=== PATIENT | female | born 1980 | race Caucasian/White ===

== ENCOUNTER 2016-09-07 15:39 | Emergency (ER) | payer OTHER ==
[~2016-09-07] VITALS: Ht 162.6 cm; Wt 93.0 kg
[2016-09-07 15:39] VITALS: BP 120/87
[~2016-09-07 15:39] MED LIST: HYDR-971 PO
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
[2016-09-07] MEDS ORDERED: OXYCODONE/APAP 5/325 TABLET. ONE (16:43)
[2016-09-07] MEDS ORDERED: OXYCODONE/APAP 5/325 TABLET. PO ONE ×2 (16:45→17:15)
== END 2016-09-07 16:20 | disposition home or self-care (01) ==
LOC: ER 15:39
DX: S49.91XA Unspecified injury of right shoulder and upper arm, initial encounter (principal); F41.9 Anxiety disorder, unspecified; Z88.0 Allergy status to penicillin; Z88.2 Allergy status to sulfonamides; Z88.8 Allergy status to other drugs, medicaments and biological substances; X58.XXXA Exposure to other specified factors, initial encounter; Y93.89 Activity, other specified; Y92.89 Other specified places as the place of occurrence of the external cause; Y99.8 Other external cause status
CPT/HCPCS: 99283

== ENCOUNTER 2017-02-04 13:50 | Emergency (ER) | payer OTHER ==
[~2017-02-04] VITALS: Ht 162.6 cm; Wt 97.1 kg
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
[2017-02-04 15:43] LABS: CLARITY,URINE CLOUDY; COLOR,URINE YELLOW; GLUCOSE,URINE NEG (NEG)
[2017-02-04 15:44] LABS: BILIRUBIN,URINE NEG (NEG)
[2017-02-04 15:45] LABS: BACTERIA,URINE FEW /HPF (0-FEW); NITRITE,URINE NEG (NEG); SQUAMOUS EPITHELIAL CELL,UR MANY /LPF; UROBILINOGEN,URINE 0.2 mg/dL (0.2 mg/dL)
[2017-02-04] MEDS ORDERED: CYCL-331 PO (16:41)
[2017-02-04] MEDS ORDERED: CYCLOBENZAPRINE 10 MG TABLET. PO ONE (17:00)
[2017-02-04 17:57] VITALS: BP 126/68
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
== END 2017-02-04 17:52 | disposition home or self-care (01) ==
LOC: EEVIPCON 13:50 → ER 13:50
DX: S09.8XXA Other specified injuries of head, initial encounter (principal); S60.222A Contusion of left hand, initial encounter; S60.221A Contusion of right hand, initial encounter; S00.511A Abrasion of lip, initial encounter; M79.1 Myalgia; F31.9 Bipolar disorder, unspecified; F41.9 Anxiety disorder, unspecified; Z88.0 Allergy status to penicillin; Z88.2 Allergy status to sulfonamides; Z88.8 Allergy status to other drugs, medicaments and biological substances; Y04.0XXA Assault by unarmed brawl or fight, initial encounter; Y93.89 Activity, other specified; Y99.8 Other external cause status; Y92.89 Other specified places as the place of occurrence of the external cause
CPT/HCPCS: 70450; 72072; 72125; 81001; 81025; 99285-25

== ENCOUNTER 2017-06-18 16:24 | Emergency (ER) | payer OTHER ==
[~2017-06-18 16:24] MED LIST changes: +CYCL-331 PO
[2017-06-18 16:30] VITALS: BP 148/81
[2017-06-18] MEDS ORDERED: CEPH-264 PO (17:43)
[2017-06-18] MEDS ORDERED: percogesic PO (17:43)
--- NOTE | 2017-06-18 17:44 | PHYS DOC ---
Past History Past Medical History: Anxiety, Bipolar, Other Past Surgical History: , Other Alcohol Use: None Drug Use: None Adult General Chief Complaint Chief Complaint: WOUND CHECK HPI HPI 36-year-old female patient with history of anxiety and bipolar disorder states she had a large lipoma removal from her back about 1 month ago without any problem. Patient states for the last 2 weeks she has had discomfort feeling in the area of surgery that getting worse for the last 2 days without fever, nausea and vomiting, pus drainage from wound. Patient states she took over-the- counter Tylenol and ibuprofen without improvement of her pain. Review of Systems Review of Systems Constitutional: Denies fever or chills [] Eyes: Denies change in visual acuity, redness, or eye pain [] HENT: Denies nasal congestion or sore throat [] Respiratory: Denies cough or shortness of breath [] Cardiovascular: No additional information not addressed in HPI [] GI: Denies abdominal pain, nausea, vomiting, bloody stools or diarrhea [] : Denies dysuria or hematuria [] Musculoskeletal: Denies joint pain, reports back pain] Integument: Denies rash or skin lesions [] Neurologic: Denies headache, focal weakness or sensory changes [] Endocrine: Denies polyuria or polydipsia [] All other systems were reviewed and found to be within normal limits, except as documented in this note. Allergies Allergies Allergies Coded Allergies Type Severity Reaction Last Updated Verified Penicillins Allergy Intermediate rash 09/07/16 Yes Sulfa (Sulfonamide Antibiotics) Allergy Intermediate rash 09/07/16 Yes prednisone Allergy Intermediate skin turns purple 07/03/16 Yes Physical Exam Physical Exam Constitutional: Well nourished, mild distress, non-toxic appearance, anxious. [ ] HENT: Normocephalic, atraumatic, bilateral external ears normal, oropharynx moist, no oral exudates, nose normal. [] Eyes: PERRLA, EOMI, conjunctiva normal, no discharge. [] Neck: Normal range of motion, no tenderness, supple, no stridor. [] Cardiovascular:Heart rate regular rhythm, no murmur [] Lungs & Thorax: Bilateral breath sounds clear to auscultation [] Skin: Warm, dry, no erythema, no rash. [] Back: Voluntary guarding in touching of area of surgery in midline of upper back , clean surgical wound without edema or fluctuation, mild erythema no CVA tenderness. [] Extremities: No tenderness, no cyanosis, no clubbing, ROM intact, no edema. [] Neurologic: Alert and oriented X 3, normal motor function, normal sensory function, no focal deficits noted. [] Psychologic: Anxious EKG EKG [] Radiology/Procedures Radiology/Procedures [] Dragon Disclaimer Dragon Disclaimer This electronic medical record was generated, in whole or in part, using a voice recognition dictation system. Departure Departure: Impression: Primary Impression: Visit for wound check Additional Impression: Anxiety Disposition: HOME, SELF-CARE Condition: STABLE Referrals: SHANNAN JOYNER (PCP) Patient Instructions: Wound Care, [id number] Additional Instructions: Follow-up with your physician in 3-5 days Return to ER if not getting better Scripts [percogesic] No Conflict Check 1 TAB PO TID Y for PAIN, #14 Prov: CRISTINA BAY MD 06/18/17 Cephalexin (KEFLEX) 500 Mg Capsule 1 CAP PO TID, #21 CAP Prov: CRISTINA BAY MD 06/18/17 Problem Qualifiers CRISTINA BAY MD Jun 18, 2017 17:44
== END 2017-06-18 17:48 | disposition home or self-care (01) ==
LOC: ER 16:24
DX: F41.9 Anxiety disorder, unspecified (principal); F31.9 Bipolar disorder, unspecified; Z48.01 Encounter for change or removal of surgical wound dressing; Z98.890 Other specified postprocedural states; Z88.0 Allergy status to penicillin; Z88.2 Allergy status to sulfonamides; Z88.8 Allergy status to other drugs, medicaments and biological substances
CPT/HCPCS: 99283

== ENCOUNTER 2017-08-01 17:24 | Emergency (ER) | payer OTHER ==
[~2017-08-01 17:24] MED LIST changes: +CEPH-264 PO; +percogesic PO
[2017-08-01 17:30] VITALS: BP 111/71
--- NOTE | 2017-08-01 18:17 | PHYS DOC ---
Past History Past Medical History: Anxiety, Bipolar, Other Additional Past Medical Histor: PTSD Past Surgical History: Smoking: Cigarettes, Greater than 1 pack/day Alcohol Use: None Drug Use: None Adult General Chief Complaint Chief Complaint: COUGH HPI HPI Patient is a pleasant 36 showed female with a known history of anxiety, bipolar disorder and PTSD who is on medications for these elements of presents with cough for last 2 days that is productive in nature without shortness of breath, mild sore throat with cough, no change in voice, with mild nasal congestion without ear pain ear drainage fevers chills or other symptoms. Patient also noted that she has 2 small lesions on the dorsum of the right hand started out as a area small swelling that she attempted to open express for similar purulent discharge now the redness and swelling as got progressively worse. Although she is No other systemic symptoms of joint swelling, rash on her palms and soles, night sweats weight loss or recent antibiotics use. Patient denies IV drug use, denies any sick contacts. She does not work as she is applying for a "" disability. Review of Systems Review of Systems Constitutional: Subjective fevers and chills Eyes: Denies change in visual acuity, redness, or eye pain [] HENT: Positive for nasal congestion positive for sore throat with cough Respiratory: Positive for productive cough without shortness of breath Cardiovascular: No additional information not addressed in HPI [] GI: Denies abdominal pain, nausea, vomiting, bloody stools or diarrhea [] : Denies dysuria or hematuria [] Musculoskeletal: Denies back pain or joint pain [] Integument: Denies rash or positive for skin lesions over the dorsum of the right hand Neurologic: Denies headache, focal weakness or sensory changes [] Endocrine: Denies polyuria or polydipsia [] All other systems were reviewed and found to be within normal limits, except as documented in this note. Allergies Allergies Allergies Coded Allergies Type Severity Reaction Last Updated Verified Penicillins Allergy Intermediate rash 09/07/16 Yes Sulfa (Sulfonamide Antibiotics) Allergy Intermediate rash 09/07/16 Yes prednisone Allergy Intermediate skin turns purple 07/03/16 Yes Physical Exam Physical Exam Of the vital signs noted on the chart within normal limits. Constitutional: Well developed, well nourished, no acute distress, non-toxic appearance. [] HENT: Normocephalic, atraumatic, bilateral external ears normal, oropharynx moist mild erythema no tonsillar hypertrophy, no oral exudates, nose normal. [] Eyes: PERRLA, EOMI, conjunctiva normal, no discharge. [] Neck: Normal range of motion, no tenderness, supple, no stridor. No anterior lymphadenopathy [] Cardiovascular:Heart rate regular rhythm, no murmur [] Lungs & Thorax: Bilateral breath sounds clear to auscultation no wheezes rhonchi rales or crackles[] Skin: Warm, dry, she has 2 small lesions measuring less than 1.5 cm on the dorsum of the right hand. One has an area of erythema that measures about 2 cm in width with a small area. Discharge with indurated tissues. There is no abscess to drain.[] Extremities: No tenderness, no cyanosis, no clubbing, ROM intact, no edema. [] Neurologic: Alert and oriented X 3, normal motor function, normal sensory function, no focal deficits noted. [] Psychologic: Affect normal, judgement normal, mood normal. [] EKG EKG [] Radiology/Procedures Radiology/Procedures [] Course & Med Decision Making Course & Med Decision Making Pertinent Labs and Imaging studies reviewed. (See chart for details) []Patient presents with a cough and symptoms very consistent with a URI. She is a smoker and she has these 2 small cellulitic lesions on the dorsum of the hand I will start her on doxycycline to treat both. I will encourage her to quit smoking. Also influenza swab a and B is negative. Patient was given supportive medications asked to follow up with her PCP. discharge: I've spoken with the patient and/or caregivers. I've explained the patient's condition, diagnosis and treatment plan based on information available to me at this time. I've answered the patient's and/or caregivers questions and addressed any concerns. The patient and/or caregivers have a good understanding the patient's diagnosis, condition and treatment plan as can be expected at this point. Vital signs have been stabilized. The patient's condition is stable for discharge from the emergency department. The patient will pursue further outpatient evaluation with her primary care provider or other designated consulting physician as outlined in the discharge instructions. Patient and/or caregivers are agreeable to this plan of care and follow-up instructions have been explained in detail. The patient and/or caregivers have received these instructions in written format and expressed understanding of these discharge instructions. The patient and her caregivers are aware that if any significant change in condition or worsening of symptoms should prompt him to immediately return to this of the closest emergency department. If an emergent department is not readily available I would encourage him to call 911. Lizzy Disclaimer Lizzy Disclaimer This electronic medical record was generated, in whole or in part, using a voice recognition dictation system. Departure Departure: Impression: Primary Impression: Cellulitis Additional Impression: Upper respiratory tract infection Disposition: HOME, SELF-CARE Condition: IMPROVED Referrals: SHANNAN JOYNER (PCP) Patient Instructions: Cellulitis, Upper Respiratory Infection, Adult Additional Instructions: discharge: I've spoken with the patient and/or caregivers. I've explained the patient's condition, diagnosis and treatment plan based on information available to me at this time. I've answered the patient's and/or caregivers questions and addressed any concerns. The patient and/or caregivers have a good understanding the patient's diagnosis, condition and treatment plan as can be expected at this point. Vital signs have been stabilized. The patient's condition is stable for discharge from the emergency department. The patient will pursue further outpatient evaluation with her primary care provider or other designated consulting physician as outlined in the discharge instructions. Patient and/or caregivers are agreeable to this plan of care and follow-up instructions have been explained in detail. The patient and/or caregivers have received these instructions in written format and expressed understanding of these discharge instructions. The patient and her caregivers are aware that if any significant change in condition or worsening of symptoms should prompt him to immediately return to this of the closest emergency department. If an emergent department is not readily available I would encourage him to call 911. Scripts Naproxen Sodium (NAPROXEN SODIUM) 275 Mg Tablet 275 MG PO BID for 7 Days, #14 TAB Prov: MAMIE DESAI MD 08/01/17 Guaifenesin/Dextromethorphan (MUCINEX DM ER 1,200-60 MG TAB) 1 Each Tbmp.12hr 1 TAB PO BID, #20 TAB 1 Refill Prov: MAMIE DESAI MD 08/01/17 Doxycycline Monohydrate (DOXYCYCLINE MONOHYDRATE) 100 Mg Capsule 1 CAP PO BID, #20 CAP Prov: MAMIE DESAI MD 08/01/17 Problem Qualifiers MAMIE DESAI MD Aug 01, 2017 18:17
[2017-08-01 18:21] LABS: INFLUENZA A PATIENT NEGATIVE (NEGATIVE); INFLUENZA B PATIENT NEGATIVE (NEGATIVE)
[2017-08-01] MEDS ORDERED: GUAI1TBM10 PO (18:30)
[2017-08-01] MEDS ORDERED: NAPR275T59 PO (18:30)
[2017-08-01] MEDS ORDERED: DOXY100C14 PO (18:30)
== END 2017-08-01 18:34 | disposition home or self-care (01) ==
LOC: ER 17:24
DX: J06.9 Acute upper respiratory infection, unspecified (principal); L03.113 Cellulitis of right upper limb; F31.9 Bipolar disorder, unspecified; F43.10 Post-traumatic stress disorder, unspecified; F41.9 Anxiety disorder, unspecified; F17.210 Nicotine dependence, cigarettes, uncomplicated; Z88.0 Allergy status to penicillin; Z88.2 Allergy status to sulfonamides; Z88.8 Allergy status to other drugs, medicaments and biological substances
CPT/HCPCS: 87804; 99284

== ENCOUNTER 2017-10-28 18:34 | Emergency (ER) | payer OTHER ==
[~2017-10-28] VITALS: Ht 165.1 cm; Wt 102.7 kg
[~2017-10-28 18:34] MED LIST changes: +DOXY100C14 PO; +GUAI1TBM10 PO; +NAPR275T59 PO
--- NOTE | 2017-10-28 18:38 | ED.ADGEN ---
Past History Past Medical History: Anxiety, Bipolar, UTI, Other Additional Past Medical Histor: PTSD Past Surgical History: Smoking: Cigarettes, Greater than 1 pack/day Alcohol Use: None Drug Use: None Adult General Chief Complaint Chief Complaint ".. I ve got flank pain .. both sides... and I ve been dizzy today...some nausea..." HPI HPI Patient is a 36 year old female who presents with above hx and complaints bilateral flank pain and nausea. Pt. Complaints of Dysuria. No history of vaginal discharge or concerns. Does have pains on percussion of bilateral flanks. No history of kidney stones. Patient has poor intake for the last 24 hours because of nausea. No history of travel or ill contacts. No history immunosuppression. No history of bad food. Review of Systems Review of Systems Constitutional: Subjective history of fever or chills [] Eyes: Denies change in visual acuity, redness, or eye pain [] HENT: Denies nasal congestion or sore throat [] Respiratory: Denies cough or shortness of breath [] Cardiovascular: No additional information not addressed in HPI [] GI: BiLateral flank abdominal pain, nausea. vomiting, bloody stools or diarrhea [] : Hx. of dysuria and hematuria [] Musculoskeletal: Denies back pain or joint pain [] Integument: Denies rash or skin lesions [] Neurologic: Denies headache, focal weakness or sensory changes [] Endocrine: Denies polyuria or polydipsia [] All other systems were reviewed and found to be within normal limits, except as documented in this note. Family History Family History Non-contributory Current Medications Current Medications Current Medications Medications (Trade) Dose Ordered Sig/Maddie Start Time Stop Time Status Last Admin Dose Admin Ceftriaxone Sodium 1 gm/ Sodium Chloride 50 ml @ 100 mls/hr 1X ONCE 10/28/17 19:30 10/28/17 19:59 UNV Ceftriaxone Sodium (Rocephin) 1 gm 1X ONCE 10/28/17 19:45 10/28/17 19:46 DC 10/28/17 20:22 1 GM Ketorolac Tromethamine (Toradol) 30 mg 1X ONCE 10/28/17 19:30 10/28/17 19:36 DC 10/28/17 19:32 30 MG Lactated Ringer's 1,000 ml @ 1,000 mls/hr 1X ONCE 10/28/17 19:30 10/28/17 20:29 DC 10/28/17 19:31 1,000 MLS/HR Levofloxacin (Levaquin) 500 mg 1X ONCE 10/28/17 20:30 10/28/17 20:31 DC 10/28/17 20:55 500 MG Morphine Sulfate (Morphine 10mg Syringe) 10 mg 1X ONCE 10/28/17 21:00 10/28/17 21:02 DC 10/28/17 21:01 10 MG Ondansetron HCl (Zofran Odt) 8 mg 1X ONCE 10/28/17 19:30 10/28/17 19:36 DC 10/28/17 19:32 8 MG Allergies Allergies Allergies Coded Allergies Type Severity Reaction Last Updated Verified Penicillins Allergy Intermediate rash 10/28/17 Yes Sulfa (Sulfonamide Antibiotics) Allergy Intermediate rash 10/28/17 Yes prednisone Allergy Intermediate skin turns purple 10/28/17 Yes Physical Exam Physical Exam Constitutional: Moderately acute distress, non-toxic appearance. [] HENT: Normocephalic, atraumatic, bilateral external ears normal, oropharynx dry , no oral exudates, nose normal. [] Eyes: PERRLA, EOMI, conjunctiva normal, no discharge. [] Neck: Normal range of motion, no tenderness, supple, no stridor. [] Cardiovascular: Tachycardia Heart rate regular rhythm, no murmur [] Lungs & Thorax: Bilateral breath sounds equal at apex with scattered wheezes auscultation [] Abdomen: Bowel sounds normal, soft, , no masses, no pulsatile masses. Old scar. Bilateral flank tenderness on percussion Suprapubic tenderness. Patient declines rectal vaginal exam at this time Skin: Warm, dry, no erythema, no rash. [] Back: No tenderness, bilateral CVA tenderness. [] Extremities: No tenderness, no cyanosis, no clubbing, ROM intact, no edema. [] Neurologic: Alert and oriented X 3, normal motor function, normal sensory function, no focal deficits noted. [] Psychologic: Affect anxious judgement normal, mood normal. [] Current Patient Data Vital Signs Vital Signs Date Time Temp Pulse Resp B/P (MAP) Pulse Ox O2 Delivery O2 Flow Rate FiO2 10/28/17 21:35 82 20 135/76 (95) 100 Room Air 10/28/17 18:45 98.2 Lab Results Laboratory Tests Test 10/28/17 19:03 10/28/17 19:50 Urine Collection Type Unknown Urine Color [place] Urine Clarity Cloudy Urine pH 5.5 Urine Specific [place] >=1.030 Urine Protein >100 mg/dl (NEG-TRACE) Urine Glucose (UA) Neg mg/dL (NEG) Urine Ketones (Stick) Trace mg/dL (NEG) Urine Blood Large (NEG) Urine Nitrite Pos (NEG) Urine Bilirubin Neg (NEG) Urine Urobilinogen Dipstick 1 mg/dL (0.2 mg/dL) Urine Leukocyte Esterase Neg (NEG) Urine RBC >40 /HPF (0-2) Urine WBC 5-10 /HPF (0-4) Urine Squamous Epithelial Cells Mod /LPF Urine Bacteria Few /HPF (0-FEW) Urine Mucus Slight /LPF White Blood Count 9.0 x10^3/uL (4.0-11.0) Red Blood Count 4.75 x10^6/uL (3.50-5.40) Hemoglobin 13.3 g/dL (12.0-15.5) Hematocrit 39.7 % (36.0-47.0) Mean Corpuscular Volume 84 fL (79-100) Mean Corpuscular Hemoglobin 28 pg (25-35) Mean Corpuscular Hemoglobin Concent 34 g/dL (31-37) Red Cell Distribution Width 14.6 % (11.5-14.5) H Platelet Count 271 x10^3/uL (140-400) Neutrophils (%) (Auto) 54 % (31-73) Lymphocytes (%) (Auto) 35 % (24-48) Monocytes (%) (Auto) 7 % (0-9) Eosinophils (%) (Auto) 3 % (0-3) Basophils (%) (Auto) 1 % (0-3) Neutrophils # (Auto) 4.8 x10^3uL (1.8-7.7) Lymphocytes # (Auto) 3.2 x10^3/uL (1.0-4.8) Monocytes # (Auto) 0.6 x10^3/uL (0.0-1.1) Eosinophils # (Auto) 0.3 x10^3/uL (0.0-0.7) Basophils # (Auto) 0.1 x10^3/uL (0.0-0.2) Sodium Level 144 mmol/L (136-145) Potassium Level 3.9 mmol/L (3.5-5.1) Chloride Level 107 mmol/L (98-107) Carbon Dioxide Level 29 mmol/L (21-32) Anion Gap 8 (6-14) Blood Urea Nitrogen 12 mg/dL (7-20) Creatinine 1.0 mg/dL (0.6-1.0) Estimated GFR (Cockcroft-Gault) 62.7 Glucose Level 67 mg/dL (70-99) L Calcium Level 9.0 mg/dL (8.5-10.1) Total Bilirubin 0.3 mg/dL (0.2-1.0) Direct Bilirubin 0.1 mg/dL (0.0-0.2) Aspartate Amino Transferase (AST) 11 U/L (15-37) L Alanine Aminotransferase (ALT) 16 U/L (14-59) Alkaline Phosphatase 46 U/L (46-116) Total Protein 7.8 g/dL (6.4-8.2) Albumin 3.9 g/dL (3.4-5.0) EKG EKG EKG shows a sinus rhythm at 80 bpm. No acute morphology[] Radiology/Procedures Radiology/Procedures Interpretation acute abdomen shows no acute cardiopulmonary findings. No free air in the diaphragm. Nonspecific bowel gas pattern.[] Course & Med Decision Making Course & Med Decision Making Pertinent Labs and Imaging studies reviewed. (See chart for details). Push Vit. C drinks. Levaquin 500 daily x 5 days. Must follow up cultures. Push fluids. Tylenol and ibuprofen for pain. Return if any concerns. Must follow- up primary care. Review labs and cultures pending here. [] Final Impression Final Impression 1. Dehydration 2. Urinary tract infection[] 3. Hypoglycemia Dragon Disclaimer Dragon Disclaimer This electronic medical record was generated, in whole or in part, using a voice recognition dictation system. JUAN ALBERTO FARIAS MD October 28, 2017 18:38
[2017-10-28] MEDS ORDERED: [UNRECOGNIZED DRUG - REMARK] (19:20)
[2017-10-28] MEDS ORDERED: ASPI-621 PO (19:20)
[2017-10-28] MEDS ORDERED: KLONOPIN (19:20)
[2017-10-28] MEDS ORDERED: LAMOTRIGINE (19:20)
[2017-10-28] MEDS ORDERED: ONDANSETRON ODT 4 MG TAB.RAPDIS PO ONE (19:30)
[2017-10-28] MEDS ORDERED: IV RINGERS SOLUTION,LACTATED 1,000 ML IV ONE (19:30)
[2017-10-28] MEDS ORDERED: KETOROLAC 30 MG/ML VIAL. IV ONE (19:30)
--- NOTE | 2017-10-28 19:38 | RAD ---
EXAM: Abdomen, 2 views. HISTORY: Pain. COMPARISON: None. FINDINGS: Frontal upright and supine views of the abdomen are obtained. There is a small amount of gas and stool within the colon. No abnormally dilated air-filled loop of bowel seen. There is no free air. IMPRESSION: Nonobstructive bowel gas pattern. Electronically signed by: Magda Augustin MD (10/28/2017 7:35 PM) [facility]
[2017-10-28] MEDS ORDERED: cefTRIAXone IV Push 1 GM VIAL. IVP ONE (19:45)
[2017-10-28 20:04] LABS: BILIRUBIN,URINE NEG (NEG); CLARITY,URINE CLOUDY; COLOR,URINE AMBER; GLUCOSE,URINE NEG (NEG); NITRITE,URINE POS (NEG); UROBILINOGEN,URINE 1 mg/dL (0.2 mg/dL)
[2017-10-28 20:05] LABS: BACTERIA,URINE FEW /HPF (0-FEW); RBC,URINE >40 /HPF (0-2); SQUAMOUS EPITHELIAL CELL,UR MOD /LPF
[2017-10-28 20:16] LABS: BASO # 0.1 x10^3/uL (0.0-0.2); BASO % 1 % (0-3); EOS # 0.3 x10^3/uL (0.0-0.7); EOS % 3 % (0-3); HEMATOCRIT 39.7 % (36.0-47.0); HEMOGLOBIN 13.3 g/dL (12.0-15.5); LYMPH # 3.2 x10^3/uL (1.0-4.8); LYMPH % 35 % (24-48); MEAN CORPUSCULAR HEMOGLOBIN 28 pg (25-35); MEAN CORPUSCULAR HGB CONC 34 g/dL (31-37); MEAN CORPUSCULAR VOLUME 84 fL (79-100); MONO # 0.6 x10^3/uL (0.0-1.1); MONO % 7 % (0-9); NEUT # 4.8 x10^3uL (1.8-7.7); NEUT % 54 % (31-73); PLATELET COUNT 271 x10^3/uL (140-400); RED BLOOD COUNT 4.75 x10^6/uL (3.50-5.40); RED CELL DISTRIBUTION WIDTH 14.6 % (11.5-14.5)
[2017-10-28 20:27] LABS: ALBUMIN 3.9 g/dL (3.4-5.0); DIRECT BILIRUBIN 0.1 mg/dL (0.0-0.2); GFR 62.7; POTASSIUM 3.9 mmol/L (3.5-5.1); TOTAL BILIRUBIN 0.3 mg/dL (0.2-1.0); TOTAL PROTEIN 7.8 g/dL (6.4-8.2)
[2017-10-28] MEDS ORDERED: levoFLOXacin 500 MG TABLET PO ONE (20:30)
[2017-10-28] MEDS ORDERED: LEVO500T59 PO (20:43)
[2017-10-28] MEDS ORDERED: HYDR-79 PO (20:52)
[2017-10-28] MEDS ORDERED: MORPHINE SULFATE 10 MG/ML SYRINGE. SQ ONE (21:00)
[2017-10-28 21:35] VITALS: BP 135/76
--- NOTE | 2017-10-29 00:21 | EKG ---
[address] [address] Test Date: 2017-10-28 Test Time: 19:55:40 Pat Name: TERRENCE HOLLAND Department: Room: Gender: F [employer]: : 1980 Requested By: JUAN ALBERTO FARIAS Order Number: [id number] Reading MD: Measurements Intervals [place] Rate: 80 P: 40 NC: 118 QRS: 41 QRSD: 78 T: 29 QT: 364 QTc: 423 Interpretive Statements SINUS RHYTHM NORMAL ECG RI6.01 No previous ECG available for comparison
== END 2017-10-28 21:35 | disposition home or self-care (01) ==
LOC: ER 18:34
DX: N39.0 Urinary tract infection, site not specified (principal); E86.0 Dehydration; F41.9 Anxiety disorder, unspecified; E16.2 Hypoglycemia, unspecified; F43.10 Post-traumatic stress disorder, unspecified; F31.9 Bipolar disorder, unspecified; F17.210 Nicotine dependence, cigarettes, uncomplicated; Z88.0 Allergy status to penicillin; Z88.2 Allergy status to sulfonamides; Z88.8 Allergy status to other drugs, medicaments and biological substances
CPT/HCPCS: 36415; 74021; 80048; 80076; 81001; 85025; 87040; 87086; 93005; 96361; 96372; 96374; 96375; 99285; J0696; J1885; J2270; J7120; Q0162

== ENCOUNTER 2017-11-01 02:28 | Emergency (ER) | payer OTHER ==
[~2017-11-01] VITALS: Ht 170.2 cm; Wt 111.1 kg
[~2017-11-01 02:28] MED LIST changes: +ASPI-621 PO; +HYDR-79 PO; +KLONOPIN; +LAMOTRIGINE; +LEVO500T59 PO; +[UNRECOGNIZED DRUG - REMARK]
--- NOTE | 2017-11-01 02:34 | ED.ADGEN ---
Past History Past Medical History: Anxiety, Bipolar, UTI, Other Additional Past Medical Histor: PTSD Past Surgical History: , Tubal ligation, Other Smoking: Cigarettes, Greater than 1 pack/day Alcohol Use: None Drug Use: None Adult General Chief Complaint Chief Complaint ".. We were having sex.. and I was on the bottom.. normal missionary position.. and all sudden I had severe Lt hand pain.. it still hurting ..." [facility] HPI Patient is a 36 year old female who presents with above hx of Lt hand pain she rates as 10/10. Pt. states she has tingle in Lt hand. Pt. denies any trauma to hand. 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 No creams, chemicals or any exposures. Pt. did take a 7.5 hydrocodone before arrival. Patient does smoke. Patient denies any immunosuppression. Patient denies any drug use. Patient distal cap refill is less than 2 seconds and equal to right hand in all fingers. Terence test is equal to right hand. No obvious edema. No obvious areas of specific tenderness. Distal vibratory more pronounced and left hand and right hand. No history of previous vasculitis syndrome. Patient reportedly up-to-date with tetanus. No specific ill contacts. No history immunosuppression. Was seen on and treated for urinary tract infection with Levaquin. Patient is right-hand dominant. Review of Systems Review of Systems Constitutional: Denies fever or chills [] Eyes: Denies change in visual acuity, redness, or eye pain [] HENT: Denies nasal congestion or sore throat [] Respiratory: Denies cough or shortness of breath [] Cardiovascular: No additional information not addressed in HPI [] GI: Denies abdominal pain, nausea, vomiting, bloody stools or diarrhea [] : Denies dysuria or hematuria [] Musculoskeletal: Denies back pain or joint pain []complaints of left hand pain. Integument: Denies rash or skin lesions [] Neurologic: Denies headache, focal weakness or sensory changes [] Endocrine: Denies polyuria or polydipsia [] All other systems were reviewed and found to be within normal limits, except as documented in this note. Family History Family History Noncontributory Current Medications Current Medications Current Medications Medications (Trade) Dose Ordered Sig/Maddie Start Time Stop Time Status Last Admin Dose Admin Aspirin (Aspirin Enteric Coated) 81 mg STK-MED ONCE 11/01/17 03:00 11/01/17 03:01 DC Aspirin (Children'S Aspirin) 81 mg 1X ONCE 11/01/17 03:15 11/01/17 03:16 DC 11/01/17 03:00 81 MG Ketorolac Tromethamine (Toradol) 60 mg 1X ONCE 11/01/17 03:15 11/01/17 03:16 DC 11/01/17 03:00 60 MG Nitroglycerin (Nitro-Bid Oint) 0.5 inch 1X ONCE 11/01/17 03:15 11/01/17 03:16 DC 11/01/17 03:00 0.5 INCH Allergies Allergies Allergies Coded Allergies Type Severity Reaction Last Updated Verified Penicillins Allergy Intermediate rash 10/28/17 Yes Sulfa (Sulfonamide Antibiotics) Allergy Intermediate rash 10/28/17 Yes prednisone Allergy Intermediate skin turns purple 10/28/17 Yes Physical Exam Physical Exam Constitutional: Reports acute distress, non-toxic appearance. [] HENT: Normocephalic, atraumatic, bilateral external ears normal, oropharynx moist, no oral exudates, nose normal. []Poor dentition Eyes: PERRLA, EOMI, conjunctiva normal, no discharge. [] Neck: Normal range of motion, no tenderness, supple, no stridor. [] Cardiovascular:Heart rate regular rhythm, no murmur [] Lungs & Thorax: Bilateral breath sounds equal at apex with scattered wheezes on auscultation [] Abdomen: Bowel sounds normal, soft, no tenderness, no masses, no pulsatile masses. Obese. Old surgery scars Skin: Warm, dry, no erythema, no rash. [] Possible injection kumar left arm. Back: No tenderness, no CVA tenderness. [] Extremities: No tenderness, no cyanosis, no clubbing, ROM intact, no edema. [] Except findings and complaints and left hand. Neurologic: Alert and oriented X 3, normal motor function, normal sensory function, no focal deficits noted. [] Psychologic: Affect normal, judgement normal, mood normal. [] Current Patient Data Vital Signs Vital Signs Date Time Temp Pulse Resp B/P (MAP) Pulse Ox O2 Delivery O2 Flow Rate FiO2 11/01/17 03:29 113 21 132/80 (97) 100 Room Air 11/01/17 02:44 98.0 EKG EKG [] Radiology/Procedures Radiology/Procedures [] Course & Med Decision Making Course & Med Decision Making Pertinent Labs and Imaging studies reviewed. (See chart for details). Patient take a daily aspirin with food. Patient take ibuprofen 400 mg with food up to 4 times a day for pain. Follow-up primary care. Return if any concerns. Patient states she is unable to produce a urine and was unwilling to have cath for urine sample. Pt. encourage to follow up with primary. [] Final Impression Final Impression 1. Left hand pain 2. Possible vasculitis/ Raynaud's syndrome 3. Tobacco Use Dragon Disclaimer Dragon Disclaimer This electronic medical record was generated, in whole or in part, using a voice recognition dictation system. JUAN ALBERTO FARIAS MD November 01, 2017 02:34
[2017-11-01] MEDS ORDERED: ASPIRIN ENTERIC COATED 81 MG TABLET.DR. PO ONE (03:00)
[2017-11-01] MEDS ORDERED: NITROGLYCERIN OINT 1 GM PACKET. TP ONE (03:15)
[2017-11-01] MEDS ORDERED: KETOROLAC 60 MG/2 ML VIAL. IM ONE (03:15)
[2017-11-01] MEDS ORDERED: ASPIRIN 81 MG TAB.CHEW PO ONE (03:15)
[2017-11-01 03:29] VITALS: BP 132/80
== END 2017-11-01 03:21 | disposition home or self-care (01) ==
LOC: ER 02:28
DX: M79.642 Pain in left hand (principal); F41.9 Anxiety disorder, unspecified; F31.9 Bipolar disorder, unspecified; F43.10 Post-traumatic stress disorder, unspecified; F17.210 Nicotine dependence, cigarettes, uncomplicated; Z87.440 Personal history of urinary (tract) infections; Z79.82 Long term (current) use of aspirin; Z88.0 Allergy status to penicillin; Z88.2 Allergy status to sulfonamides; Z88.8 Allergy status to other drugs, medicaments and biological substances
CPT/HCPCS: 96372; 99283; J1885

== ENCOUNTER 2017-12-31 00:33 | Emergency (ER) | payer OTHER ==
[~2017-12-31] VITALS: Ht 165.1 cm; Wt 83.9 kg
[2017-12-31 00:43] VITALS: BP 142/90
[2017-12-31] MEDS ORDERED: CLIN300C8 PO (00:49)
--- NOTE | 2017-12-31 00:50 | PHYS DOC ---
Past History Past Medical History: Anxiety, Bipolar, Other Additional Past Medical Histor: PTSD Past Surgical History: , Other Smoking: Cigarettes, Greater than 1 pack/day Alcohol Use: None Drug Use: None Adult General Chief Complaint Chief Complaint: EARACHE/EAR PAIN [facility] HPI Patient is a 37-year-old female who presents to the emergency department for evaluation. She states that for the past week, she has had worsening right ear pain. She states that she tried cleaning out her ear several days ago and had a little bit of bleeding, but has not had any other otic discharge. She denies any hearing changes or headache, fevers, or chills. She has not had any nausea, vomiting, or headaches. Palpation of the external structures of her ear worsen the pain. There are no alleviating factors to her symptoms. Review of Systems Review of Systems Constitutional: Denies fever or chills [] Eyes: Denies change in visual acuity, redness, or eye pain [] HENT: Denies nasal congestion or sore throat [] Respiratory: Denies cough or shortness of breath [] Cardiovascular: No additional information not addressed in HPI [] GI: Denies abdominal pain, nausea, vomiting, bloody stools or diarrhea [] Neurologic: Denies headache, focal weakness or sensory changes [] Allergies Allergies Allergies Coded Allergies Type Severity Reaction Last Updated Verified Penicillins Allergy Intermediate rash 10/28/17 Yes Sulfa (Sulfonamide Antibiotics) Allergy Intermediate rash 10/28/17 Yes prednisone Allergy Intermediate skin turns purple 10/28/17 Yes Physical Exam Physical Exam PHYSICAL EXAM: CONSTITUTIONAL: Well developed, well nourished HEAD: normocephalic, atraumatic EENT: PERRL, EOMI. Conjunctivae normal color, sclerae non-icteric; moist mucous membranes. The external ear structures of the right ear appear normal. There is tragal tenderness to palpation, without any warmth or erythema to the skin of the ear. There is mild thickening of the distal inferior external auditory canal. The tympanic membrane is partially visualized and appears normal. There is no purulent discharge present. There is mildly anterior cervical lymphadenopathy. There is no mastoid tenderness to palpation. Hearing is grossly intact. NECK: Supple, non-tender; no meningismus. LUNGS: Lungs CTA, breathing even and unlabored. Normal air movement. HEART: Regular rate and rhythm, no murmur CHEST: No deformity; non-tender EXTREM: Normal ROM; no deformity, no calf tenderness. Normal pulses palpable in all extremities. There is no pedal edema. SKIN: No rash; no diaphoresis NEURO: Alert; normal speech and cognition; CN's grossly intact; strength grossly intact without focal deficit. EKG EKG [] Radiology/Procedures Radiology/Procedures [] Course & Med Decision Making Course & Med Decision Making Pertinent Labs and Imaging studies reviewed. (See chart for details) [] Dragon Disclaimer Dragon Disclaimer This electronic medical record was generated, in whole or in part, using a voice recognition dictation system. Departure Departure: Impression: Primary Impression: Acute otitis externa Disposition: HOME, SELF-CARE Condition: STABLE Referrals: SHANNAN JOYNER (PCP) Patient Instructions: Otitis Externa Scripts Clindamycin Hcl (CLINDAMYCIN HCL) 300 Mg Capsule 1 CAP PO TID, #21 CAP Prov: RONI TIMMONS MD 12/31/17 RONI TIMMONS MD Dec 31, 2017 00:49
[2017-12-31] MEDS ORDERED: NEOMYCIN/POLYMYXIN/HC OTIC SUSPENSION 10ML BOTTLE. AD ONE (01:00)
[2017-12-31] MEDS ORDERED: ACETAMINOPHEN/CODEINE 300/30MG TABLET PO ONE (01:00)
== END 2017-12-31 01:09 | disposition home or self-care (01) ==
LOC: ER 00:33
DX: H60.501 Unspecified acute noninfective otitis externa, right ear (principal); F41.9 Anxiety disorder, unspecified; F31.9 Bipolar disorder, unspecified; F43.10 Post-traumatic stress disorder, unspecified; F17.210 Nicotine dependence, cigarettes, uncomplicated; Z88.0 Allergy status to penicillin; Z88.2 Allergy status to sulfonamides; Z88.8 Allergy status to other drugs, medicaments and biological substances
CPT/HCPCS: 99283

== ENCOUNTER 2018-02-03 20:13 | Emergency (ER) | payer OTHER ==
[~2018-02-03] VITALS: Ht 165.1 cm; Wt 102.7 kg
[~2018-02-03 20:13] MED LIST changes: +CLIN300C8 PO
[2018-02-03 20:22] VITALS: BP 143/85
--- NOTE | 2018-02-03 21:42 | PHYS DOC ---
Past History Past Medical History: Anxiety, Arthritis, Asthma, Bipolar, Other Additional Past Medical Histor: PTSD Past Surgical History: No Surgical History Smoking: Cigarettes, Greater than 1 pack/day Additional Smoking Information: Patient states she recently started the patch Alcohol Use: None Drug Use: None Adult General Chief Complaint Chief Complaint: BURN/SMOKE INHALATION HPI HPI Patient is a 37 year old female who presents with complaint of left hand pain. Patient states that she accidentally burned herself on a hot pot that she took out of the oven shortly prior to arrival. Patient states that she also has history of carpal tunnel syndrome in her left wrist and states that this seems to have exacerbated her symptoms. Patient states that she is currently on ibuprofen and prednisone therapy at home. Patient states that she follows with Dr. Dhillon and has an appointment tomorrow to see her for an unrelated chest x- ray exam. Patient states that her pain currently as 8 out of 10. Patient denies any other injuries. Review of Systems Review of Systems Constitutional: Denies fever or chills [] Eyes: Denies change in visual acuity, redness, or eye pain [] HENT: Denies nasal congestion or sore throat [] Respiratory: Denies cough or shortness of breath [] Cardiovascular: Denies chest pain or edema[] GI: Denies abdominal pain, nausea, vomiting, bloody stools or diarrhea [] : Denies dysuria or hematuria [] Musculoskeletal: Left hand pain[] Integument: Denies rash or skin lesions [] Neurologic: Denies headache, focal weakness or sensory changes [] All other systems were reviewed and found to be within normal limits, except as documented in this note. Allergies Allergies Allergies Coded Allergies Type Severity Reaction Last Updated Verified Penicillins Allergy Intermediate rash 10/28/17 Yes Sulfa (Sulfonamide Antibiotics) Allergy Intermediate rash 10/28/17 Yes prednisone Allergy Intermediate skin turns purple 10/28/17 Yes Physical Exam Physical Exam Constitutional: Alert, afebrile, appears in mild to moderate discomfort. [] HENT: Normocephalic, atraumatic, bilateral external ears normal, oropharynx moist, no oral exudates, nose normal. [] Eyes: PERRLA, EOMI, conjunctiva normal, no discharge. [] Neck: Normal range of motion, no tenderness, supple, no stridor. [] Cardiovascular:Heart rate regular rhythm, no murmur [] Lungs & Thorax: Bilateral breath sounds clear to auscultation [] Abdomen: Bowel sounds normal, soft, no tenderness, no masses, no pulsatile masses. [] Skin: Warm, dry, no erythema, no obvious burn injury to left hand. [] Back: No tenderness, no CVA tenderness. [] Extremities: Tenderness to palpation along the medial and lateral aspect of the left hand, capillary refill is less than 2 seconds in all 5 digits of the left hand, range of motion and left wrist limited secondary to pain, no obvious deformity or swelling. [] Neurologic: Alert and oriented X 3, normal motor function, normal sensory function, no focal deficits noted. [] Current Patient Data Vital Signs Vital Signs Date Time Temp Pulse Resp B/P (MAP) Pulse Ox O2 Delivery O2 Flow Rate FiO2 02/03/18 20:22 98.3 103 18 99 Room Air Lab Results Not performed EKG EKG Not performed[] Radiology/Procedures Radiology/Procedures Not performed[] Course & Med Decision Making Course & Med Decision Making Pertinent Labs and Imaging studies reviewed. (See chart for details) Patient does not appear to have any significant evidence for thermal burn to the left hand. I suspect that the patient's symptoms may be a combination of anxiety and exacerbation of her carpal tunnel syndrome. The patient was given [place] in the emergency department to help with pain. Patient did not wish to receive a pain medication prescription from the emergency department and states that she will follow with her primary doctor. The patient was advised to use her carpal tunnel wrist splint to help with symptoms at home and advised to return to emergency department for any worsening symptoms per the patient was understanding and agreement with treatment plan. Dragon Disclaimer Dragon Disclaimer This electronic medical record was generated, in whole or in part, using a voice recognition dictation system. Departure Departure: Impression: Primary Impression: Carpal tunnel syndrome of left wrist Disposition: HOME, SELF-CARE Condition: IMPROVED Referrals: SHANNAN JOYNER (PCP) Patient Instructions: Carpal Tunnel Syndrome, [id number] Additional Instructions: Follow-up with your primary doctor tomorrow as scheduled for reevaluation. Return to the emergency department for any worsening symptoms. JESSENIA KELLY MD Feb 03, 2018 21:42
[2018-02-03] MEDS ORDERED: HYDROcodone/APAP 7.5/325MG 1 TAB TABLET PO ONE (21:45)
== END 2018-02-03 21:53 | disposition home or self-care (01) ==
LOC: ER 20:13
DX: G56.02 Carpal tunnel syndrome, left upper limb (principal); F41.9 Anxiety disorder, unspecified; M19.90 Unspecified osteoarthritis, unspecified site; J45.909 Unspecified asthma, uncomplicated; F31.9 Bipolar disorder, unspecified; F43.10 Post-traumatic stress disorder, unspecified; F17.210 Nicotine dependence, cigarettes, uncomplicated; Z88.0 Allergy status to penicillin; Z88.2 Allergy status to sulfonamides; Z88.8 Allergy status to other drugs, medicaments and biological substances
CPT/HCPCS: 99282

== ENCOUNTER 2018-03-11 17:24 | Emergency (ER) | payer OTHER ==
[~2018-03-11] VITALS: Ht 165.1 cm; Wt 96.6 kg
--- NOTE | 2018-03-11 17:49 | PHYS DOC ---
Past History Past Medical History: Anxiety, Arthritis, Asthma, Bipolar, Other Additional Past Medical Histor: PTSD Past Surgical History: Tubal ligation Smoking: Cigarettes, Greater than 1 pack/day Alcohol Use: None Drug Use: None Adult General Chief Complaint Chief Complaint: LOWER EXT PAIN HPI HPI 37-year-old female presents the emergency department with right lower calf and popliteal fossa pain and tenderness that has slowly been worsening for the last 3 weeks. She denies any chest pain, shortness of breath, rash, fever, chills, recent injury (outside of potential overuse injury). Review of Systems Review of Systems All other systems were reviewed and found to be within normal limits, except as documented in this note. Family History Family History noncontributory Allergies Allergies Allergies Coded Allergies Type Severity Reaction Last Updated Verified Penicillins Allergy Intermediate rash 10/28/17 Yes Sulfa (Sulfonamide Antibiotics) Allergy Intermediate rash 10/28/17 Yes prednisone Allergy Intermediate skin turns purple 10/28/17 Yes oxycodone Allergy Unknown 02/03/18 Yes Physical Exam Physical Exam GENERAL: Awake, alert, no acute distress HEAD/EYES: Normocephalic, EOMI ENT Airway patent, mucous membranes moist NECK: Supple, no meningismus, no swelling RESP: No respiratory distress, symmetrical expansion CV: Normal peripheral perfusion ABD/GI: Non distended EXT: Right calf tenderness to palpation, same with popliteal fossa, inner thigh less so SKIN: Warm, dry NEURO: Normal motor observed PSYCH: Cooperative, appropriate affect Current Patient Data Vital Signs Vital Signs Date Time Temp Pulse Resp B/P (MAP) Pulse Ox O2 Delivery O2 Flow Rate FiO2 03/11/18 17:37 98.2 98 18 100 Room Air Lab Results Not performed EKG EKG Not performed[] Radiology/Procedures Radiology/Procedures [address] [address] IMAGING REPORT Signed PATIENT: TERRENCE HOLLAND ACCOUNT: [id number] : 1980 LOCATION: ER AGE: 37 SEX: F EXAM STATUS: REG ER ORD. PHYSICIAN: KIKI MARIE DO REASON: right knee pain PROCEDURE: KNEE RIGHT 3V KNEE RIGHT 3V History: RIGHT KNEE PAIN Comparison: None. Findings: 3 views of the right knee are submitted. No acute fracture or dislocation is identified. Impression: 1. No acute osseous abnormality is identified. Electronically signed by: Johnny Anthony MD (03/11/2018 6:07 PM) [facility] DICTATED AND SIGNED BY: JOHNNY ANTHONY MD DATE: 03/11/181805 CC: KIKI MARIE DO; JESSENIA TELLO MD; SHANNAN JOYNER ~ [place] [address] IMAGING REPORT Signed PATIENT: TERRENCE HOLLAND ACCOUNT: [id number] : 1980 LOCATION: ER AGE: 37 SEX: F EXAM STATUS: REG ER ORD. PHYSICIAN: KIKI MARIE DO REASON: rle pain and tenderness PROCEDURE: VENOUS LOWER EXTREMITY RIGHT Right lower extremity venous doppler ultrasound History: Right lower extremity pain for 3 weeks Comparison: None Findings: Multiple grayscale, color, and duplex spectral analysis sonographic images were acquired of the right lower extremity veins to evaluate for the presence of DVT. There is normal phasicity. Normal compression, color-flow, and augmentation is demonstrated from the right common femoral to the popliteal veins. There is normal color flow of the proximal greater saphenous and profunda femoris veins. There is normal color flow of segments of the calf veins. Impression: 1. There is no evidence of deep venous thrombosis from the right common femoral to popliteal veins. Electronically signed by: Johnny nAthony MD (03/11/2018 6:59 PM) [facility] DICTATED AND SIGNED BY: JOHNNY ANTHONY MD DATE: 03/11/18 985 CC: KIKI MARIE DO; JESSENIA TELLO MD; SHANNAN JOYNER ~ [] Course & Med Decision Making Course & Med Decision Making 5:47 PM. Handing off care to Dr. Tello at 6 PM. Patient is likely stable to be discharged. Pending right lower shimmery ultrasound to rule out DVT and right knee x-ray. Addendum by Dr. Jessenia Tello at 1930: I received care of patient from Dr. Marie at 1800. The patient had negative ultrasound and x-ray studies of the right lower extremity. The patient's symptoms appear consistent with tendinitis or other overuse injury of the right lower extremity. The patient states that she is unable to take steroids as this causes her to "break out in hives and scratched myself until is was black and blue." Advised that the patient continue on ibuprofen and follow up with her primary doctor in the next 5 days for reevaluation. Advised stretching of the right lower extremity and to decrease activity until symptoms improve. Recommended return to the emergency department for any worsening symptoms. Patient was understanding and agreement with treatment plan. Dragon Disclaimer Dragon Disclaimer This electronic medical record was generated, in whole or in part, using a voice recognition dictation system. Departure Departure: Impression: Primary Impression: Musculoskeletal pain Disposition: HOME, SELF-CARE Condition: IMPROVED Referrals: SHANNAN JOYNER (PCP) Patient Instructions: Musculoskeletal Pain Additional Instructions: Follow-up with your primary doctor in 5 days for reevaluation. Return to the emergency department for any worsening symptoms. KIKI MARIE DO Mar 11, 2018 17:49 JESSENIA TELLO MD Mar 11, 2018 19:33
--- NOTE | 2018-03-11 18:11 | RAD ---
KNEE RIGHT 3V History: RIGHT KNEE PAIN Comparison: None. Findings: 3 views of the right knee are submitted. No acute fracture or dislocation is identified. Impression: 1. No acute osseous abnormality is identified. Electronically signed by: Memo Pichardo MD (03/11/2018 6:07 PM) [facility]
--- NOTE | 2018-03-11 19:03 | RAD ---
Right lower extremity venous doppler ultrasound History: Right lower extremity pain for 3 weeks Comparison: None Findings: Multiple grayscale, color, and duplex spectral analysis sonographic images were acquired of the right lower extremity veins to evaluate for the presence of DVT. There is normal phasicity. Normal compression, color-flow, and augmentation is demonstrated from the right common femoral to the popliteal veins. There is normal color flow of the proximal greater saphenous and profunda femoris veins. There is normal color flow of segments of the calf veins. Impression: 1. There is no evidence of deep venous thrombosis from the right common femoral to popliteal veins. Electronically signed by: Memo Pichardo MD (03/11/2018 6:59 PM) [facility]
[2018-03-11 19:14] VITALS: BP 135/76
== END 2018-03-11 19:52 | disposition home or self-care (01) ==
LOC: ER 17:24
DX: M79.661 Pain in right lower leg (principal); M25.561 Pain in right knee; M19.90 Unspecified osteoarthritis, unspecified site; J45.909 Unspecified asthma, uncomplicated; F17.210 Nicotine dependence, cigarettes, uncomplicated; Z88.0 Allergy status to penicillin; Z88.2 Allergy status to sulfonamides; Z88.5 Allergy status to narcotic agent; Z88.8 Allergy status to other drugs, medicaments and biological substances
CPT/HCPCS: 73562; 93971; 99284